=== PATIENT | female | born 1995 | race Caucasian/White ===

== ENCOUNTER 2018-02-03 00:10 | Observation (INO) ==
[2018-02-03] MEDS ORDERED: SODIUM CHLORIDE 0.9% 1,000 ML IV STA (01:07)
[2018-02-03] MEDS ORDERED: MORPHINE 4 MG/1 ML VIAL IV STA ×2 (01:07→03:27)
[2018-02-03] MEDS ORDERED: PANTOPRAZOLE 40 MG VIAL IV STA (01:07)
[2018-02-03] MEDS ORDERED: KETOROLAC 30 MG/1 ML VIAL IV STA (01:07)
[2018-02-03] MEDS ORDERED: ONDANSETRON 4 MG/2 ML VIAL IV STA (01:07)
[2018-02-03 01:22] LABS: Basophils % 0.4 % (0.0-0.8); Eosinophils # 0.1 10*3/uL (0.0-0.87); Hematocrit 37.4 VOL% (35.7-47.0); Hemoglobin 12.4 GM/DL (12.0-16.0); Immature Granulocytes % 0.2 %; Immature Granulocytes Absolute 0.01 #; Lymphocytes % 53.7 % (21.3-54.2); Mean Corpuscular HGB Conc 33.2 GM/DL (32-36); Mean Corpuscular Hemoglobin 27 PG (27-34); Mean Corpuscular Volume 81.5 FL (87-102); Mean Platelet Volume 11.4 FL (9.6-12.0); Monocytes # 0.3 10*3/uL (0.11-0.8); Neutrophils # 2.2 10*3/uL (1.4-7.4); Neutrophils % 38.7 % (38.7-73.9); Platelet Count 206 T/CUMM (130-400); Red Blood Count 4.59 MC/CUMM (3.8-5.5); Red Cell Distribution Width 13.3 % (9.3-17.3); White Blood Count 5.6 T/CUMM (4-12)
[2018-02-03 01:34] LABS: Alanine Aminotransferase 21 U/L (13-56); Albumin 3.6 G/DL (3.4-5.0); Alkaline Phosphatase 57 U/L (45-117); Amylase 31 U/L (25-115); Aspartate Amino Transferase 15 U/L (0-37); Bilirubin,Total < 0.39 MG/DL (0.2-1.0); Blood Urea Nitrogen 8 MG/DL (7-18); Calcium 8.6 MG/DL (8.5-10.1); Glucose 97 MG/DL (74-106); Osmolality,Calculated 280.1 MOS/KG (273-304); Potassium 3.3 MMOL/L (3.5-5.1); Sodium 142 MMOL/L (136-145); Total Protein 6.9 G/DL (6.4-8.3)
[2018-02-03] MEDS ORDERED: POTASSIUM CHLORIDE 20 MEQ TABLET PO STA (01:47)
[2018-02-03 02:48] LABS: Apearance,Urine CLEAR (Clear); Bilirubin,Urine Negative (Negative); Blood, Urine Moderate mg/dL (Negative); Glucose,Urine (UA) Negative (Negative); Ketones,Urine Negative (Negative); Mucus,Urine Few /LPF (Occasional); Nitrite,Urine Negative (Negative); Protein,Urine 30 MG/DL; RBC,Urine 132 /HPF (0-4); Squamous Epithelial Cell,Urine Occasional /HPF (0-10); Urine Color Yellow (Yellow); WBC,Urine 5 /HPF (0-6)
[2018-02-03] MEDS ORDERED: MORPHINE 10 MG/1 ML VIAL ONE (03:33)
[2018-02-03] MEDS ORDERED: ACETAMINOPHEN 325 MG TABLET PO PRN (03:47)
[2018-02-03] MEDS ORDERED: ONDANSETRON 4 MG/2 ML VIAL IV PRN (03:47)
[2018-02-03] MEDS ORDERED: KETOROLAC 15 MG/1 ML VIAL IV PRN (03:47)
[2018-02-03] MEDS ORDERED: LACTATED RINGERS 1,000 ML IV SCH (04:00)
[2018-02-03] MEDS ORDERED: MORPHINE 10 MG/1 ML VIAL IV SCH (04:00)
[2018-02-03] MEDS ORDERED: MORPHINE 10 MG/1 ML VIAL IV PRN ×2 (06:50→14:14)
[2018-02-03] MEDS ORDERED: SODIUM CHLORIDE 0.9% 1,000 ML IV SCH (07:00)
[2018-02-03] MEDS: PANTOPRAZOLE 40 MG TABLET PO SCH (08:49)
[2018-02-03] MEDS: SODIUM CHLOR 0.9% KCL 20 MEQ 20 MEQ/1,000 ML BAG IV SCH ×2 (11:13→20:32)
[2018-02-03] MEDS: valACYclovir 500 MG TABLET PO SCH (11:14)
[2018-02-03] MEDS: PROMETHAZINE 25 MG/1 ML VIAL IM PRN ×2 (11:14→21:36)
[2018-02-03] MEDS: DOCUSATE SODIUM 100 MG CAPSULE PO SCH ×2 (14:15→20:32)
[2018-02-03] MEDS: ONDANSETRON 4 MG/2 ML VIAL IV PRN ×2 (16:20→22:52)
[2018-02-03] MEDS: MORPHINE 4 MG/1 ML VIAL IV PRN ×2 (16:20→21:36)
[2018-02-03] MEDS ORDERED: MEPERIDINE 50 MG/1 ML VIAL ONE (16:52)
[2018-02-03] MEDS ORDERED: MEPERIDINE 25 MG/1 ML VIAL IV ONE ×2 (16:55→21:00)
[2018-02-03] MEDS: MIDODRINE 5 MG TABLET PO SCH (20:32)
[2018-02-03] MEDS ORDERED: BISACODYL 5 MG TABLET PO PRN (20:58)
[2018-02-03] MEDS ORDERED: CYANOCOBALAMIN 1000 MCG/1 ML VIAL IM SCH (21:30)
[2018-02-03] MEDS ORDERED: MORPHINE 4 MG/1 ML VIAL IV ONE (23:30)
[2018-02-03] MEDS ORDERED: KETOROLAC 30 MG/1 ML VIAL IV ONE (23:30)
[2018-02-04] MEDS: MORPHINE 4 MG/1 ML VIAL IV PRN ×2 (02:21→11:11)
[2018-02-04] MEDS: SODIUM CHLOR 0.9% KCL 20 MEQ 20 MEQ/1,000 ML BAG IV SCH ×3 (02:22→09:52)
[2018-02-04] MEDS ORDERED: DIAZEPAM 5 MG TABLET PO ONE ×2 (05:30→12:00)
[2018-02-04] MEDS ORDERED: ACETAMINOPHEN 500 MG TABLET PO ONE ×2 (05:30→12:00)
[2018-02-04] MEDS ORDERED: FAMOTIDINE 20 MG TABLET PO ONE ×2 (05:30→12:00)
[2018-02-04] MEDS ORDERED: GABAPENTIN 400 MG CAPSULE PO ONE ×2 (05:30→12:00)
[2018-02-04 06:47] LABS: Calcium 7.2 MG/DL (8.5-10.1); Osmolality,Calculated 282.8 MOS/KG (273-304); Potassium 4.4 MMOL/L (3.5-5.1)
[2018-02-04] MEDS ORDERED: KETOROLAC 30 MG/1 ML VIAL IV ONE (08:20)
[2018-02-04] MEDS ORDERED: HYDROmorphone 2 MG TABLET PO PRN (08:29)
[2018-02-04] MEDS ORDERED: NON-FORMULARY MEDICATION (Dextroamphetamine/Amphetamine [Adderall 20 Mg Tablet] 20 MG) PO SCH (09:00)
[2018-02-04] MEDS ORDERED: BIRTH CONTROL PO SCH (09:00)
[2018-02-04] MEDS: MIDODRINE 5 MG TABLET PO SCH (09:45)
[2018-02-04] MEDS: PANTOPRAZOLE 40 MG TABLET PO SCH (09:45)
[2018-02-04] MEDS: ONDANSETRON 4 MG/2 ML VIAL IV PRN (11:22)
[2018-02-04] MEDS ORDERED: cefTRIAXone 1,000 MG VIAL ONE (12:29)
[2018-02-04] MEDS: DOCUSATE SODIUM 100 MG CAPSULE PO SCH (12:43)
[2018-02-04] MEDS ORDERED: SEVOFLURANE 1 UNIT/15 MINUTE INH ONE (13:26)
[2018-02-04] MEDS ORDERED: MIDAZOLAM 2 MG/2 ML VIAL ONE (13:26)
[2018-02-04] MEDS ORDERED: PROPOFOL 200 MG/20 ML VIAL IV ONE (13:26)
[2018-02-04] MEDS ORDERED: ONDANSETRON 4 MG/2 ML VIAL ONE (13:27)
[2018-02-04] MEDS ORDERED: NEOSTIGMINE 10 MG/10 ML VIAL ONE (13:27)
[2018-02-04] MEDS ORDERED: GLYCOPYRROLATE 0.4 MG/2 ML VIAL ONE (13:27)
[2018-02-04] MEDS ORDERED: ROCURONIUM 100 MG/10 ML VIAL IV ONE (13:27)
[2018-02-04] MEDS ORDERED: fentaNYL 100 MCG/2 ML VIAL ONE (13:27)
[2018-02-04] MEDS ORDERED: DEXAMETHASONE 10 MG/1 ML VIAL ONE (13:27)
[2018-02-04] MEDS ORDERED: ONDANSETRON 4 MG/2 ML VIAL IV PRN (14:01)
[2018-02-04] MEDS ORDERED: MORPHINE 10 MG/1 ML VIAL IV PRN (14:01)
[2018-02-04] MEDS: valACYclovir 500 MG TABLET PO SCH (15:37)
[2018-02-04 17:05] VITALS: BP 107/73
[2018-02-08 23:31] LABS: Stone Source Passed Stone
== END 2018-02-04 18:30 | disposition home or self-care (01) ==
LOC: N.EDINP 00:10 → N.ED 00:10 → N.5E 04:19
PROVIDERS: ADMIT Surgery; ATTEND Surgery